=== PATIENT | male | born 1970 | race African-American/Black ===

== ENCOUNTER 2021-03-13 07:13 | Emergency (ER) | payer MEDICAID, MEDICARE, OTHER ==
[~2021-03-13] VITALS: Ht 177.8 cm; Wt 118.0 kg
[2021-03-13 07:58] LABS: BASOPHILS % 1.5 % (0.0-2.0); EOSINOPHILS % 3.3 % (0.0-5.0); HEMATOCRIT. 43.6 % (42.0-52.0); HEMOGLOBIN. 14.8 g/dL (14.0-18.0); LYMPHOCYTES % 33.5 % (20.0-50.0); MEAN CORPUSCULAR HEMOGLOBIN 29.8 pg (28.0-32.0); MEAN CORPUSCULAR VOLUME 87.6 fL (80.0-94.0); MEAN PLATELET VOLUME 8.4 fl (7.4-10.4); MONOCYTES % 7.1 % (2.0-8.0); NEUTROPHILS % 54.6 % (40.0-76.0); PLATELET 326 x1000/uL (130-400); RED BLOOD CELL COUNT 4.98 mill/uL (4.7-6.1); RED CELL DISTRIBUTION WIDTH 13.1 % (11.6-14.6)
[2021-03-13 08:07] LABS: CHLORIDE 102 mEq/L (98-107)
[2021-03-13 09:23] LABS: CLARITY URINE CLEAR (CLEAR); COLOR URINE YELLOW (YELLOW); KETONES URINE NEGATIVE (NEGATIVE); LEUKOCYTE ESTERASE URINE NEGATIVE (NEGATIVE); NITRITE URINE NEGATIVE (NEGATIVE); OCCULT BLOOD URINE NEGATIVE (NEGATIVE); PH URINE 5.5 (4.5-8.0); PROTEIN URINE NEGATIVE (NEGATIVE); SPECIFIC GRAVITY URINE 1.011 (1.005-1.030); UROBILINOGEN URINE 0.2 E.U./dL (0.2-1.0)
[2021-03-13 09:45] VITALS: BP 119/87
== END 2021-03-13 09:58 | disposition home or self-care (01) ==
LOC: ER 07:38
DX: I10 Essential (primary) hypertension (principal); R07.89 Other chest pain; F17.200 Nicotine dependence, unspecified, uncomplicated; I25.10 Atherosclerotic heart disease of native coronary artery without angina pectoris; R51.9 Headache, unspecified
CPT/HCPCS: 36415; 71045; 80053; 81003; 84484; 85025; 99285